=== PATIENT | male | born 1985 | race Caucasian/White ===

== ENCOUNTER 2018-12-14 15:18 | Emergency (ER) | payer BC, OTHER, SELFPAY ==
[~2018-12-14] VITALS: Ht 185.4 cm; Wt 112.7 kg
--- NOTE | 2018-12-14 15:43 | NUR ---
VLADISLAV RN: PT PRESENTING TO ER FOR LONGO AND NAUSEA X3-4 DAYS. PT STATES IT COMES IN WAVES PRIMARILY OVER TOP OF HEAD. NO BLURRED VISION, NECK TIGHTNESS, SENSITIVITY TO LIGHT OR SOUND REPORTED. HX OF AFIB, SUPPOSED TO BE TAKING XERELTO BUT D/T INSURANCE HASNT TAKEN MEDS FOR MONTHS. CONNECTED TO ALL MONITORING, VSS. FAMLIY AT BEDSIDE. CALL LIGHT WITHIN REACH. LABS DRAWN AND PT TAKEN FOR CT. REPORT TO SYEDA COHEN.
[2018-12-14] MEDS ORDERED: XARELTO (15:46)
[2018-12-14 16:02] LABS: BASOPHILS # (AUTO) 0.05 x10^3/uL (0-0.1); BASOPHILS % (AUTO) 1 % (0-1); EOSINOPHILS # (AUTO) 0.12 x10^3/uL (0-0.4); EOSINOPHILS % (AUTO) 1 % (1-7); LYMPHOCYTES # (AUTO) 3.55 x10^3/uL (1-3.4); LYMPHOCYTES % (AUTO) 42 % (22-44); MD NO; MEAN CORPUSCULAR HEMOGLOBIN 29.4 pg (27.5-34.5); MEAN CORPUSCULAR HGB CONC 33.6 g/dL (33.2-36.2); MEAN CORPUSCULAR VOLUME 87.5 fL (81-97); MEAN PLATELET VOLUME 8.2 fL (7.4-10.4); MONOCYTES % (AUTO) 6 % (2-9); NEUTROPHILS # (AUTO) 4.16 x10^3/uL (1.8-6.8); NEUTROPHILS % (AUTO) 50 % (42-75); PLATELET COUNT 233 x10^3/uL (130-400); RED BLOOD COUNT 5.13 x10^6/uL (4.38-5.82); RED CELL DISTRIBUTION WIDTH 13.7 % (9.4-14.8)
--- NOTE | 2018-12-14 16:06 | NUR ---
pt upright on gurney with eyes closed, responds approp to staff, comfort measures provided, call light within reach.
[2018-12-14 16:13] LABS: ANION GAP 6 mmol/L (5-15); CALCIUM 8.8 mg/dL (8.5-10.1); CHLORIDE 108 mmol/L (98-107)
[2018-12-14 16:14] LABS: CREATININE 1.12 mg/dL (0.7-1.3)
--- NOTE | 2018-12-14 17:01 | NUR ---
pt remains upright on gurney awake & comfortable, responds approp to staff, comfort measures provided, at BS, call light within reach.
[2018-12-14] MEDS ORDERED: DEXAMETHASONE 4 MG/ML, 5ML ONE (17:14)
[2018-12-14] MEDS ORDERED: PROMETHAZINE 25 MG/ML, 1ML ONE (17:14)
--- NOTE | 2018-12-14 17:20 | NUR ---
pt to CTA
[2018-12-14] MEDS ORDERED: DEXAMETHASONE 4 MG/ML, 1ML IM ONE (17:30)
[2018-12-14] MEDS ORDERED: PROMETHAZINE 25 MG/ML, 1ML IM ONE (17:30)
--- NOTE | 2018-12-14 17:36 | NUR ---
pt returned from [facility]A
[2018-12-14] MEDS ORDERED: OMNIPAQUE 350 MG/ML, 100ML BOTTLE ONE (17:44)
[2018-12-14 18:01] VITALS: BP 125/69
--- NOTE | 2018-12-14 18:02 | NUR ---
pt upright on gurney awake & comfortable, responds approp to staff, comfort measures provided, at BS, call light within reach.
--- NOTE | 2018-12-14 18:59 | NUR ---
report given to Laura
== END 2018-12-14 19:15 | disposition home or self-care (01) ==
LOC: ED 19:00
DX: G44.84 Primary exertional headache (principal); G44.82 Headache associated with sexual activity; I66.21 Occlusion and stenosis of right posterior cerebral artery; I48.91 Unspecified atrial fibrillation; Z91.19 Patient's noncompliance with other medical treatment and regimen
CPT/HCPCS: 36415; 70450; 70496; 80048; 82040; 85025; 93005; 96372; 99284; J1100; J2550; Q9967